=== PATIENT | female | born 1975 | race Caucasian/White ===

== ENCOUNTER 2024-01-27 08:25 | Outpatient (CLI) | payer OTHER, SELFPAY ==
--- NOTE | 2024-01-27 08:30 | CRLHL7_ITS ---
For Patients: As a result of the Century Cures Act, medical imaging exams and procedure reports are released immediately into your electronic medical record. You may view this report before your referring provider. If you have questions, please contact your health care provider. INDICATION: Right foot pain. TECHNIQUE: Three views of the right foot. FINDINGS: Subtle irregularity and sclerosis in the navicular bone, healing fracture not excluded. Correlate for any point tenderness and history of trauma. Chronic flattening of the 3rd metatarsal head. Minimal 1st MTP joint degenerative change. Small plantar and Achilles heel spurs. Dictated by Jah Oneal MD @ 01/28/2024 11:09:27 AM (Electronically Signed)
[2024-01-27 09:12] LABS: Basophils Absolute Auto 0.04 K/uL (0.00-0.30); Basophils Percent Auto 0.4 % (0.0-3.0); Eosinophils Absolute Auto 0.16 K/uL (0.00-0.50); Eosinophils Percent Auto 1.6 % (0.0-7.0); Hematocrit 42.7 % (33.0-51.0); Hemoglobin* 13.9 gm/dL (12.0-16.0); Immature Granulocytes Abs Auto 0.02 K/uL (0.00-0.30); Immature Granulocytes Pct Auto 0.2 %; Lymphocytes Absolute Auto 2.88 K/uL (0.90-2.90); Lymphocytes Percent Auto 28.8 % (20-44); Mean Corpuscular HGB Conc 33 gm/dL (32-36); Mean Corpuscular Hemoglobin 30 pg (26-34); Mean Corpuscular Volume 92 fL (80-100); Monocytes Percent Auto 5.5 % (0.0-11.0); Neutrophils Absolute Auto 6.34 K/uL (1.7-7.0); Neutrophils Percent Auto 63.5 % (42.0-72.0); Platelet Count* 314 K/uL (140-440); RDW Coefficient of Variation % 13.7 % (11.5-15.5); Red Blood Count 4.64 m/uL (4.00-5.20); White Blood Count* 9.99 K/uL (4.50-11.00)
[2024-01-27 09:14] LABS: Slide Review Reflex No
[2024-01-27 09:23] LABS: Hemoglobin A1C* 6.6 % (0-5.6)
[2024-01-27 09:24] LABS: Albumin* 4.9 g/dL (3.3-5.0); Chloride* 103 mmol/L (96-114)
[2024-01-27 09:25] LABS: Potassium* 3.5 mmol/L (3.6-5.1); Sodium* 138 mmol/L (135-149)
[2024-01-27 09:27] LABS: Anion Gap 13 mEq/L (7-15); Aspartate Amino Transferase* 45 U/L (12-35); Bilirubin Total* 0.5 mg/dL (0.1-1.5); Blood Urea Nitrogen* 13 mg/dL (7-30); Carbon Dioxide* 22 mmol/L (20-32); Creatinine* 0.5 mg/dL (0.5-1.5); Estimated Glomerular Filt Rate 114 ml/min; Total Protein* 8.6 g/dL (6.0-8.3)
[2024-01-27 09:28] LABS: Alanine Aminotransferase* 40 U/L (4-35); Alkaline Phosphatase* 121 U/L (40-150); Calcium* 9.3 mg/dL (8.4-10.6); Glucose* 166 mg/dL (60-115)
== END 2024-01-27 08:26 | disposition home or self-care (01) ==
LOC: RAD 08:26
PROVIDERS: PCP Family Medicine; Visit Provider Family Medicine
DX: M79.671 Pain in right foot (principal)
CPT/HCPCS: 36415; 73630; 80053; 83036; 84443; 85025

== ENCOUNTER 2024-11-07 03:33 | Emergency (ER) | payer OTHER, SELFPAY ==
--- OUTSIDE RECORDS SUMMARY | 2024-10-30 16:48 | XMS_ITS | Encounter Summary ---
Author Organization [place] Address [address] [place] [address] Care Team Providers Care Fabric Finisher Name Role Phone [facility] Primary [facility] ider Reason for Referral * Consultation (Routine: Next available opening) - Pending Review Specialty Diagnoses / Procedures Referred By Trae t Referred To Contact Diagnoses Epistaxis Elevated blood pressure reading without diagnosis of hypertension Rick Gibbons PA-C [facility] [address] [place] [address] Phone: tel: fax: Referral ID Status Reason Start Date Expiration Date V isits Requested Visits Authorized [id number] Pending Review 10/30/2024 10/30/2025 1 1 Question Answer Reason for Referral: Establish Primary Care Comments Please be aware that coverage of these services is subject to the terms and limitations of your health insurance plan. Call member services at your health plan with any benefit or coverage questions. Reason for Visit * Reason Comments Epistaxis Encounter Details Date Type Department Care Team (Late st Contact Info) Description 10/30/2024 4:48 PM CDT - 10/30/2024 6:48 PM CDT Emergency [facility] Emergency Dept [address] [place] [address] Rick Gibbons PA-C [facility] [address] [place] [address] Epistaxis; Elevated blood pressure reading without diagnosis of hypertension Discharge Disposition: Home or Self Care Social History Tobacco Use Types Packs/Day Years Used Date Smoking Tobacco: Never Assessed Comments No Sex and Gender Information Value Date Recorded Sex Assigned at Not on file Legal Sex Female 4:48 PM CDT Gender Identity Not on file Sexual Orientation Not on file documented as of this encounter Last Filed Vital Signs Vital Sign Reading Time Taken Comments Blood Pressure 190/106 10/30/2024 6:30 PM CDT Pulse 104 10/30/2024 6:30 PM CDT Temperature 36.3 C (97.3 F) 10/30/2024 4:53 PM CDT Respiratory Rate 18 10/30/2024 6:30 PM CDT Oxygen Saturation 95% 10/30/2024 6:30 PM CDT Inhaled Oxygen Concentration - - Weight - - Height - - Body Mass Index - - documented in this encounter Discharge Instructions * Discharge Instructions* Rick Gibbons PA-C - 10/30/2024 6:02 PM CDT Please use Afrin nasal spray twice a day for the next 3 days. Recommend applying a small amount of Aquaphor or Vaseline to the right nostril. Please avoid using excessive amounts of ibuprofen or other NSAIDs as this can thin your blood and cause ongoing nasal bleeding. Please follow-up with your primary care provider for blood pressure recheck. Please return to the ER with ongoing bleeding, dizziness, lightheadedness, or any other new or worsening symptoms. * Attachments The following attachments cannot be sent through Care Everywhere. * Nosebleeds ([place]) * Nose Cautery: Post op ([place]) * Hypertension: General Info ([place]) documented in this encounter ED Notes * Siria Galeas RN - 10/30/2024 5:04 PM CDT Patient presents to ED from via EMS. Patient had nose bleed that had been bleeding for 30 minutes. HEALTH AND WELLNESS ADVISOR EMS report blood coming out of her eyes and patient coughing up blood. Hypertensive. Some oozing out R nostril. * Rick Gibbons PA-C - 10/30/2024 5:04 PM CDT Emergency Department Note History of Present Illness Chief Complaint Epistaxis HPI Bety Wharton is a 48 year old female with a history of diabetes mellitus type II who presents to the ED via EMS from Urgent Care with her friend's daughter for evaluation of epistaxis. Patientreports that she woke up this morning with a tooth ache so she took 1000 mg of ibuprofen. At 1000 this morning she went to breakfast with her friend's daughter, and then around 1400 they went shopping. Just before 1600 while still shopping, her right nostril began to bleed profusely. They could notget it to stop and she was coughing up blood clots so they went to Urgent Care. At Urgent Care theyclamped her nose, but after a while the pressure built up and blood began to come out of her eyes, so they sent her to the ED. She is feeling a little lightheaded and nervous. She states that she woke up feeling fine this morning and did not have a nosebleed. She used to get minor nose bleeds from the ages of [age], but they were never this severe, and she stopped getting them. She has had a cough recently and rhinorrhea. No fevers. She denies trauma to the nose or picking at her nose. She is noton any anticoagulants. No hemoptysis or hematemesis. She does not have a history of chronic hypertension, but does have elevated blood pressure when she goes to the dentist or feels particularly nervous. No history of bleeding or clotting disorders. She does not check her blood pressure daily, but has been told at primary care appointments that her heart is healthy. History was obtained through the use of patient's friend's daughter acting as financial investigator. Independent Historian None Review of External Notes Reviewed note from today. Seen for epistaxis. Past Medical History Medical History and Problem List Diabetes mellitus type II Medications The patient is not currently taking any regular medications. Surgical History No past surgical history on file. Physical Exam Patient Vitals for the past 24 hrs: BP Temp Temp src Pulse Resp SpO2 10/30/24 1653 (!) 193/106 97.3 ??F (36.3 ??C) Temporal 119 18 97 % Physical Exam Physical Exam: General: alert, no acute distress Head: normocephalic, atraumatic Eyes: normal conjunctiva, PERRLA, EOMI Ears: External ears appear normal. Nose: Blood clots noted in right nare with mild oozing. No blood in the left nare. No septal hematoma. No nasal trauma. No nasal bridge tenderness. Throat: No blood in the posterior oropharynx. Moist mucous membranes. Neck: Supple. CV: tachycardic, regular rhythm Pulm: lungs clear to ausculation bilaterally. No respiratory distress. Abdomen: soft, non-tender, non-distended MSK: No midline tenderness Ext: Normal range of motion of all extremities. No gross deformities Skin: warm, dry, no rashes Neuro: Alert and oriented, moving all extremities normally Psych: Appropriate mood. Cooperative Diagnostics Lab Results Labs Ordered and Resulted from Time of ED Arrival to Time of ED Departure CBC WITH PLATELETS AND DIFFERENTIAL - Abnormal Result Value WBC Count 14.3 (*) RBC Count 4.25 Hemoglobin 12.8 Hematocrit 38.9 MCV 92 MCH 30.1 MCHC 32.9 RDW 13.4 Platelet Count 319 % Neutrophils 74 % Lymphocytes 20 % Monocytes 4 % Eosinophils 1 % Basophils 1 % Immature Granulocytes 1 NRBCs per 100 WBC 0 Absolute Neutrophils 10.6 (*) Absolute Lymphocytes 2.9 Absolute Monocytes 0.5 Absolute Eosinophils 0.1 Absolute Basophils 0.1 Absolute Immature Granulocytes 0.1 Absolute NRBCs 0.0 Imaging No orders to display EKG None Independent Interpretation None ED Course Medications Administered Medications oxymetazoline (AFRIN) 0.05 % spray 2 spray (has no administration in time range) silver nitrate (ARZOL) Misc 1 applicator (has no administration in time range) Procedures Procedures Epistaxis Care Procedure: Epistaxis Care Indication: Epistaxis Consent: Verbal Medication: Patient was topically medicated with Oxymetazoline Procedure detail: Clots were expelled. An area along the right anterior nasal septum was identifiedas the likely source of bleeding. This area was cauterized with silver nitrate. Patient was closely monitored and did not have evidence of recurrent bleeding. Patient Status: The patient tolerated the procedure well: Yes. There were no complications. Discussion of Management None ED Course ED Course as of 10/30/241810 Sat Oct 30, 20241654 I obtained the history and performed the examination as described. 1746 I rechecked and updated the patient. 1809 I rechecked and updated the patient. Discussed discharge. Additional Documentation None Medical Decision Making / Diagnosis [facility] Diagnoses: None MIPS None [facility] Bety Wharton is a 48 year old female who presents to the ED from for evaluation of epistaxis. Patient reports that she was out shopping today when her right nare suddenly began bleeding. She was seen at urgent care but they were unable to stop the bleeding prompting her visit to the ED. On arrival, patient is hypertensive and tachycardic. Exam is notable for blood clots in the right nare with mild oozing. No septal hematoma. No nasal trauma. No blood in posterior oropharynx. Blood clots were removed after a few cycles of nasal irrigation and Afrin nasal spray. After the blood clots were removed, I was able to visualize an area of recent bleed along the anterior nasal septum. This was cauterized using silver nitrate. She was observed in the ED without recurrence of bleed. Suspecther nosebleed was secondary to nasal irritation from recent viral respiratory illness and excessiveibuprofen use. CBC was obtained which revealed elevated WBC likely reactive. Normal hemoglobin. Normal platelets. Vitals remained stable in the ED. BP was still elevated on recheck. Discussed close follow-up with her PCP for blood pressure recheck. Recommended Afrin nasal spray, applying Vaseline/Aquaphor to the anterior nasal septum, and to avoid excessive NSAID use. Instructed to use nasal clamp for recurrent bleed. Discussed return to the ER with ongoing bleeding, dizziness, lightheadedness, syncope, fever, chills, or any other new or worsening symptoms. Patient voiced understanding agreeable to plan of care. All questions were answered. Disposition The patient was discharged. Diagnosis ICD-10-CM 1. Epistaxis R04.0 Primary Care Referral 2. Elevated blood pressure reading without diagnosis of hypertension R03.0 Primary Care Referral Discharge Medications New Prescriptions No medications on file Scribe Disclosure: I, Ryan Taylor, am serving as a scribe at 5:12 PM on 10/30/2024 to document services personally performed by Rick Gibbons PA-C based on my observations and the provider's statements to me. Rick Gibbons PA-C 10/31/24 0028 Rick Gibbons PA-C 10/31/24 0028 * Siria Galeas RN - 10/30/2024 4:48 PM CDT Bed: ED15 Expected date: Expected time: Means of arrival: Comments: [facility]-Epistaxis documented in this encounter Plan of Treatment Scheduled Referrals Name Type Priority Associated Diagnoses Orde r Schedule Primary Care Referral Referral Routine: Next available opening Epistaxis Elevated blood pressure reading without diagnosis of hypertension Expected: 10/30/2024 (Approximate), Expires: 10/30/2025 documented as of this encounter Procedures Procedure Name Priority Date/Time Associated Diagnosis Comments CBC WITH PLATELETS AND DIFFERENTIAL STAT 10/30/2024 5:34 PM CDT CBC WITH PLATELETS & DIFFERENTIAL STAT 10/30/2024 5:34 PM CDT documented in this encounter Results * (ABNORMAL) CBC with platelets and differential (10/30/2024 5:34 PM CDT) WBC Count 14.3(H) 4.0 - 11.0 10e3/uL 10/30/2024 5:43 PM CDT [facility] RBC Count 4.25 3.80 - 5.20 10e6/uL 10/30/2024 5:43 PM CDT [facility] Hemoglobin 12.8 11.7 - 15.7 g/dL 10/30/2024 5:43 PM CDT [facility] Hematocrit 38.9 35.0 - 47.0 % 10/30/2024 5:43 PM CDT [facility] MCV 92 78 - 100 fL 10/30/2024 5:43 PM CDT [facility] MCH 30.1 26.5 - 33.0 pg 10/30/2024 5:43 PM CDT [facility] MCHC 32.9 31.5 - 36.5 g/dL 10/30/2024 5:43 PM CDT [facility] RDW 13.4 10.0 - 15.0 % 10/30/2024 5:43 PM CDT [facility] Platelet Count 319 150 - 450 10e3/uL 10/30/2024 5:43 PM CDT [facility] % Neutrophils 74 % 10/30/2024 5:43 PM CDT [facility] % Lymphocytes 20 % 10/30/2024 5:43 PM CDT [facility] % Monocytes 4 % 10/30/2024 5:43 PM CDT [facility] % Eosinophils 1 % 10/30/2024 5:43 PM CDT [facility] % Basophils 1 % 10/30/2024 5:43 PM CDT [facility] % Immature Granulocytes 1 % 10/30/2024 5:43 PM CDT [facility] NRBCs per 100 WBC 0 <1 /100 025 5:43 PM CDT [facility] Absolute Neutrophils 10.6(H) 1.6 - 8.3 10e3/uL 10/30/2024 5:43 PM CDT [facility] Absolute Lymphocytes 2.9 0.8 - 5.3 10e3/uL 10/30/2024 5:43 PM CDT [facility] Absolute Monocytes 0.5 0.0 - 1.3 10e3/uL 10/30/2024 5:43 PM CDT [facility] Absolute Eosinophils 0.1 0.0 - 0.7 10e3/uL 10/30/2024 5:43 PM CDT [facility] Absolute Basophils 0.1 0.0 - 0.2 10e3/uL 10/30/2024 5:43 PM CDT [facility] Absolute Immature Granulocytes 0.1 <=0.4 10e3/uL 10/30/2024 5:43 PM CDT [facility] Absolute NRBCs 0.0 10e3/uL 10/30/2024 5:43 PM CDT [facility] Blood STRUCTURE OF RIGHT HAND / Unknown Venipuncture / Unknown 10/30/2024 5:34 PM CDT 10/30/2024 5:40 PM CDT us Rick Rey Shai [facility] - BLOOD ORDERABLES Final Result [facility] [address] Lab (1st floor, no room number) [place] [address], [facility] documented in this encounter Visit Diagnoses Diagnosis Epistaxis Elevated blood pressure reading without diagnosis of hypertension documented in this encounter Administered Medications Inactive Administered Medications - up to 3 most recent administrations Medication Order MAR Action Action Date Dose Rate Site oxymetazoline (AFRIN) 0.05 % spray 2 spray 2 spray, Nasal, ONCE, On 10/30/24 at 1700, For 1 dose, Use for more than 3 consecutive days may cause rebound vasodilation. $Given 10/30/2024 6:19 PM CDT 2 sprays silver nitrate (ARZOL) Misc 1 applicator Topical, ONCE, On 10/30/24 at 1755, For 1 dose $Given 10/30/2024 6:21 PM CDT 1 applicator documented in this encounter Active and Recently Administered Medications Times are shown in CDT. Scheduled Medication Order 10/28/2024 10/29/2024 10/30/2024 oxymetazoline (AFRIN) 0.05 % spray 2 spray (COMPLETED) 2 spray, Nasal, ONCE, On 10/30/24 at 1700, For 1 dose, Use for more than 3 consecutive days may cause rebound vasodilation. 1819 ($Given - Provi melody: Siria Galeas RN) silver nitrate (ARZOL) Misc 1 applicator (COMPLETED) Topical, ONCE, On 10/30/24 at 1755, For 1 dose 1821 ($Given - Provi melody: Siria Galeas RN) documented in this encounter Care Teams Fabric Finisher Relationship Specialty Start Date End Date [facility] [address] [place] [id number] PCP - General 10/30/24 11/01/24 documented as of this encounter
--- OUTSIDE RECORDS SUMMARY | 2024-11-07 03:36 | XMS_ITS | Clinical Summary ---
Author Organization [employer] Address [facility] [place] [address] Care Team Providers Care Color Adviser Name Role Phone Pcp, No Primary Care Provider Unavailabl e Allergies Active Allergy Reactions Criticality Noted Date Comments Penicillin V Rash High 05/01/2016 Medications INTRAUTERINE DEVICE (IUD)Indication s:Encounter for IUD insertion Insert 1 Device into the vagina. [id number] mirena Exp 06/25 Remove 04/24/16 1 Device 0 04/24/2011 Active gemfibrozil (LOPID) 600 mg tabletIndicatio ns:Hypertriglyc eridemia Take 1 tablet by mouth 2 times daily before meals. 180 tablet 1 09/27/2013 Active cholecalciferol (VITAMIN D3) 50,000 unit capsuleIndicati ons:Vitamin D deficiency Take 1 capsule by mouth every Friday and . 32 capsule 0 01/17/2014 Active budesonide (RHINOCORT AQUA) (32 mcg each actuation) nasal spray Inhale 2 Sprays into both nostrils once daily. 1 Each 5 01/19/2014 Active loratadine (CLARITIN) 10 mg tablet Take 1 tablet by mouth once daily. 30 tablet 11 01/19/2014 Active hydrOXYzine pamoate (VISTARIL) 25 mg capsuleIndicati ons:Anxiety Take 1 capsule by mouth 3 times daily if needed. 30 capsule 02/14/2018 Active Active Problems Problem Noted Date Diagnosed Date Elevated fasting glucose 05/07/2013 Adjustment disorder with mixed anxiety and depre ssed mood 02/24/2013 Morbid obesity 04/05/2011 Medial epicondylitis of elbow 04/05/2011 TP (tinea pedis) 04/05/2011 Undiagnosed cardiac murmurs 04/05/2011 Vitamin D deficiency 11/19/2010 Low grade squamous intraepit helial lesion (LGSIL) on cervical Pap smear 09/21/2008 Overview (05/27/2017): 09/21/2008 LSIL 12/05/2008 [place]: SREE 1 06/07/2009 ASCUS/HPV positive, [place]: Benign 05/31/2010 NIL 04/12/2013 NIL/HPV negative 05/13/2017 NIL/HPV negative Plan: Routine screening Encounters Date Type Department Care Team Description 11/02/2024 Orders Only [facility] Scanner 1 scan: (1-Ord) ISABELLA, PAULO LAB RESULTS, 11/02/2024 10/30/2024 4:15 PM CDT Office Visit [facility] [address] [place] [address] [address] [place] [address] Nose Problem 10/30/2024 Travel from Last 3 Months Immunizations Immunization Administration Dates Next Due AMB Influenza, IIV3 (Age >=3 years)(Flu Clinic O nly) 03/28/2009 Influenza, IIV3 (Age >=3 years) 04/12/2013,02/21 Tdap 04/12/2013 Family History Medical History Relation Name Comments Arthritis Father Hypertension Maternal Grandmother Diabetes Mother Hyperlipidemia Mother Hypertension Mother Relation Name Status Comments Father Maternal Grandmother Mother Social History Tobacco Use Types Packs/Day Years Used Date Smoking Tobacco: Never Smokeless Tobacco: Never Tobacco Cessation:Counseling Given: Yes Alcohol Use Standard Drinks/Week Comments No 0 (1 standard drink = 0.6 oz pur e alcohol) Comments No Sex and Gender Information Value Date Recorded Sex Assigned at Not on file Legal Sex Female 6:28 AM INDUSTRIAL RELATIONS SPECIALIST Gender Identity Not on file Sexual Orientation Not on file Obstetrics History Para Term AB IAB SAB Ectopic Multiple Livin g Live Births 2 2 2 2 Date Outcome GA Total Labor Labor/2nd/3rd Weight Sex Type Anes PTL Rand A1 A5 Name Clin 2001 Term 40w 0d 16h 00m/ 3.4 kg (7 lb 8 oz) M Vag gavin 2004 Term 40w 0d 16h 00m/ 3.86 kg (8 lb 8 oz) M Eyal Weinstein Last Filed Vital Signs Vital Sign Reading Time Taken Comments Blood Pressure 179/92 10/30/2024 4:20 PM CDT Pulse 130 10/30/2024 4:20 PM CDT Temperature 37.6 C (99.6 F) 10/30/2024 4:20 PM CDT Respiratory Rate 18 01/18/2016 5:33 PM CDT Oxygen Saturation 97% 10/30/2024 4:20 PM CDT Inhaled Oxygen Concentration - - Weight 99.7 kg (219 lb 12.8 oz) 02/14/2018 8:12 AM CDT Height 151 cm (4' 11.45) 05/13/2017 8:07 AM INDUSTRIAL RELATIONS SPECIALIST Body Mass Index 43.73 05/13/2017 8:07 AM INDUSTRIAL RELATIONS SPECIALIST Plan of Treatment Health Maintenance Due Date Last Done Comments Hepatitis C screening for ag e 18-11[birth year]24[birth year]1991 Hepatitis B series for 19+ ( 1 of 3 - 19+ 3-dose series) 1992 Depression screening for age 12+ 01/17/2017 01/18/20 16 BMI (ht and wt on same day) for age 18+ 05/13/2018 05/13/2017, 01/18/2016 Colonoscopy through age 75 2018 Mammogram for age 45-75 09/25/2021 09/25/2020, 05/13 Lipids for age 45-75 11/29/2021 11/29/2016, 03/24/2015, 09/09/2013, Additional history exists Tetanus booster 04/12/2023 04/12/2013 Pneumococcal series for age 50+ (1 of 1 - PCV) 11/24/2023 Zoster (shingles) series for age 50+ (1 of 2) 11/24/2023 COVID-19 vaccine series ( - season) 2023 04/03/2022, 05/17/2021, 07/29/2020, Additional history exists Influenza Vaccine (#1) 2024 3, 02/21/2011, 03/28/2009 Pap test for age 21-65 10/08/2025 3, 10/08/2022, 03/14/2022, Additional history exists HIV for age 15-65 Completed 09/13/2008 Procedures Procedure Name Priority Date/Time Associated Diagnosis Comments SCAN-LABORATORY REPORT 11/02/2024 12:00 AM CDT HPV HIGH RISK Routine 10/08/2022 12:00 PM CDT SCAN-MAMMOGRAPHY REPORT 09/25/2020 12:00 AM CDT LIPID PANEL Routine 11/29/2016 8:13 AM CDT Obese Pre-diabetes ANTI HIV 1/2 Routine 09/13/2008 4:46 PM CDT Supervision of Other Normal (HC) from Last 3 Months or Most Recently Relevant to Health Maintenance Results * SCAN-LABORATORY REPORT (11/02/2024 12:00 AM CDT) us Scanner OTHER Final Result * HPV HIGH RISK (10/08/2022 12:00 PM CDT) TYPE 16 Negative Negative 10/17/2022 5:17 PM CDT [facility] TYPE 18 Negative Negative 10/17/2022 5:17 PM CDT [facility] OTHER HIGH RISK TYPES Negative Negative 10/17/2022 5:17 PM CDT [facility] Other (Cervical) 10/08/2022 12:00 PM CDT 10/14/2022 12:14 PM CDT Narrative [facility] - 10/17/2022 5:17 PM CDT HPV types 16, 18, 31, 33, 35, 39, 45, 51, 52, 56, 58, 59, 66 and 68 DNA were undetectable or below the pre-set threshold. Methodology: Daryl Krunal 4800 HPV Test us Krystal Chavis NP MICROBIOLOGY Final Res ult [facility] [address] [place] [address], [place] * SCAN-MAMMOGRAPHY REPORT (09/25/2020 12:00 AM CDT) Anatomical Region Laterality Modality Other us Scanner OTHER Final Result * (ABNORMAL) LIPID PANEL (11/29/2016 8:13 AM CDT) CHOLESTEROL,TOTAL 181 100 - 199 mg/dL 11/29/2016 3:26 PM CDT [facility] TRIGLYCERIDES 214(H) <150 mg/dL 11/29/2016 3:26 PM CDT [facility] HDL CHOLESTEROL 41 >40 mg/dL 7 3:26 PM CDT [facility] NON-HDL CHOLESTEROL 140 <145 mg/dl 11/29/2016 3:26 PM CDT [facility] CHOL/HDL RATIO 4.41 <4.50 11/29/2016 3:26 PM CDT [facility] LDL CHOLESTEROL 97 <=130 mg/dL 11/29/2016 3:26 PM CDT [facility] PATIENT STATUS NOT GIVEN 11/29/2016 3:26 PM CDT [facility] Blood BLOOD SPECIMEN / Unknown Venipuncture / Unknown 11/29/2016 8:13 AM CDT 11/29/2016 8:13 AM CDT us Nakia Garcia Detert DO CHEMISTRY Final Resul t [facility] [address] [place] [address], [place] * HIV (09/13/2008 4:46 PM CDT) ANTI HIV 1/2 Non-reacti ve [facility] Blood specimen (specimen) BLOOD SPECIMEN / Unknown 09/13/2008 4:46 PM CDT 09/13/2008 4:36 PM CDT us Azul Lopez [facility] INTER[facility] SEND OUTS F inal Result [facility] [place]NAL ZIP [address] [address] [place] [address] from Last 3 Months or Most Recently Relevant to Health Maintenance Care Teams Color Adviser Relationship Specialty Start Date End Date Pcp, No . PCP - General 09/18/18
--- OUTSIDE RECORDS SUMMARY | 2024-11-07 03:36 | XMS_ITS | Encounter Summary ---
Author Organization [employer] Address [address] [place] [address] Care Team Providers Care Track Worker Name Role Phone [facility] Primary Care Prov ider Encounter Details Date Type Department Care Team (Latest Contact Info) Description 10/30/2024 Travel Social History Tobacco Use Types Packs/Day Years Used Date Smoking Tobacco: Never Assessed Comments No Sex and Gender Information Value Date Recorded Sex Assigned at Not on file Legal Sex Female 4:48 PM CDT Gender Identity Not on file Sexual Orientation Not on file documented as of this encounter Plan of Treatment Not on file documented as of this encounter Visit Diagnoses Not on filedocumented in this encounter Care Teams Track Worker Relationship Specialty Start Date End Date [facility] [address] [place] [address] PCP - General 10/30/24 11/01/24 documented as of this encounter
--- OUTSIDE RECORDS SUMMARY | 2024-11-07 03:36 | XMS_ITS | Clinical Summary ---
Author Organization [facility] Address [address] [place] [id number] Care Team Providers Care Building Custodial Supervisor Name Role Phone Unavailable Primary Care Provider Unavailabl e Allergies No known active allergies Medications No known medications Encounters Date Type Department Care Team Description 10/30/2024 4:48 PM CDT - 10/30/2024 6:48 PM CDT Emergency [facility] [address] [place] [id number] Shai, Rick Rey, RONAN Epistaxis; Elevated blood pressure reading without diagnosis of hypertension Discharge Disposition: Home or Self Care 10/30/2024 Travel from Last 3 Months Social History Tobacco Use Types Packs/Day Years Used Date Smoking Tobacco: Never Assessed Comments No Sex and Gender Information Value Date Recorded Sex Assigned at Not on file Legal Sex Female 4:48 PM CDT Gender Identity Not on file Sexual Orientation Not on file Last Filed Vital Signs Vital Sign Reading Time Taken Comments Blood Pressure 190/106 10/30/2024 6:30 PM CDT Pulse 104 10/30/2024 6:30 PM CDT Temperature 36.3 C (97.3 F) 10/30/2024 4:53 PM CDT Respiratory Rate 18 10/30/2024 6:30 PM CDT Oxygen Saturation 95% 10/30/2024 6:30 PM CDT Inhaled Oxygen Concentration - - Weight - - Height - - Body Mass Index - - Plan of Treatment Health Maintenance Due Date Last Done Comments ADVANCE CARE PLANNING 1973 ANNUAL REVIEW OF HM ORDERS 1973 CT COLONOGRAPHY 1973 DIABETES SCREENING 1973 FIT 1973 FLEX SIG 1973 MAMMO SCREENING 1973 sDNA (Cologuard) 1973 YEARLY PREVENTIVE VISIT 1976 COLONOSCOPY 11/24/1983 COLORECTAL CANCER SCREENING 11/24/1983 HEPATITIS C SCREENING 11/24/1991 HEPATITIS B VACCINE (1 of 3 - 19+ 3-dose series) 1992 LIPID 2013 DTAP/TDAP/TD VACCINE (2 - Td or Tdap) 04/12/2023 04/12/2013 PNEUMOCOCCAL VACCINE 50+ YEARS (1 of 1 - PCV) 11/24/2023 ZOSTER VACCINE (1 of 2) 11/24/2023 COVID-19 VACCINE (1 - 2023-2 5 season) 2023 PHQ-2 (once per calendar year) 2024 INFLUENZA VACCINE (#1) 2024 3, 02/21/2011, 03/28/2009 PAP 10/08/2025 10/08/2022 HIV SCREENING Completed 09/13/2008 HPV VACCINE (No Doses Required) Completed MENINGITIS VACCINE Aged Out No longer eligible based on patient's age to complete this topic Procedures Procedure Name Priority Date/Time Associated Diagnosis Comments CBC WITH PLATELETS & DIFFERENTIAL STAT 10/30/2024 5:34 PM CDT CBC WITH PLATELETS AND DIFFERENTIAL STAT 10/30/2024 5:34 PM CDT from Last 3 Months Results * (ABNORMAL) CBC with platelets and [...] CDT 10/30/2024 5:40 PM CDT us Rick Gibbons PA-C LAB - BLOOD ORDERABLES Final Result [facility] [address] [facility] (1st floor, no room number) [place] [address], [facility] from Last 3 Months
[2024-11-07 03:38] VITALS: BP 155/91; PULSE 118; RESP 22; TEMP 37.3; O2SAT 96
[2024-11-07] MEDS: TRANEXAMIC ACID 100 MG/ML INJ 1000 MG TOPICAL (03:59)
--- NOTE | 2024-11-07 04:08 | ED_ITS ---
HPI - General Adult General Chief complaint: Epistaxis/Nosebleed Stated complaint: nosebleed Time Seen by Provider: 11/07/24 03:43 Source: patient and family Mode of arrival: ambulatory Limitations: language barrier (Patient requested son to interpret, waiver signed.) History of Present Illness HPI narrative: 48-year-old female presents the emergency department in the wee hours with a nosebleed for the past 13 hours. Initially had started to slow but never fully stopped, worsened about an hour prior to presentation. No trauma or injury. Does not take any anticoagulants. Unfortunately has been getting nosebleeds with increasing frequency over the past month or so including 1 last week. No prior history of nasal surgery. Does not notice bleeding from other areas such as GI tract, gynecological, urinary, etc.. No pain or headache. No fever. Blood did come out of the medial canthus of eye as well. Nasal clamp applied in triage. No vomiting. Past medical history notable for well-controlled diabetes. Reports that her only home medication is metformin. Has a penicillin allergy. Nonsmoker. ROS is notable for the HEENT complaints of as above only. Negative for GI, generalized, other HEENT, respiratory cardiovascular, hematological or skin changes. Related Data Home Medications ?Medication ?Instructions ?Recorded ?Confirmed metformin 500 mg tablet,extended 500 mg PO BID 3 11/07/24 release 24 hr omega-3 300 mg-dha 120 mg-epa 180 1 cap PO DAILY 10/0811/07/24 mg-fish oil 1,000 mg capsule Allergies Allergy/AdvReac Type Severity Reaction Status Date / Time Penicillins Allergy Severe Swelling Verified 10/08/22 17:36 of Lip/Tongue/Throat [facility] Medical History History of miscarriage (2008) ?Z87.59 - Personal history of other complications of , childbirth and the puerperium (ICD-10) History of vaginal delivery Family History Mother High blood pressure High cholesterol Diabetes Maternal Grandmother High blood pressure Social History What is your current living situation?: I presently have a place to live Problems where you live: no known problems In the past 12 months, utilities in danger of being shut off: no In the past 12 mos, have been you worried that your food would run out before you had money to buy more?: sometimes true In the past 12 mos, the food you bought just didn't last and you didn't have money to buy more?: sometimes true Smoking Status: Never smoker Non-prescribed substance use: denies use How often does anyone, including family, friends and others, physically hurt you : How often does anyone, including family, friends and others, insult or talk down to you: How often does anyone, including family, friends and others, threaten you with harm: How often does anyone, including family, friends and others, scream or curse at you: Health Related Social Needs: food insecurity (Z59.41) Exam Const: Vital Signs, click to edit/add: Vital Signs - 24 hr 11/07/24 03:38 Temperature 99.1 F Pulse Rate [Pulse Oximeter] 118 H Respiratory Rate 22 Blood Pressure [Ri ght Upper Arm] 155/91 H Pulse Oximetry 96 Oxygen Delivery Me thod Room Air Documenting provider has reviewed patient's vital signs: yes Common normals: no apparent distress General appearance: cooperative and well kempt HENMT: Common normals: normocephalic, moist oral mucous membranes and oropharynx normal Head and scalp: normocephalic Other: Left knee are normal. Right Cavazos has bleeding from the anterior septum, clots present, cleared. Eye: Common normals: conjunctivae normal General eye: normal appearance of both eyes Conjunctiva: conjunctiva(e) normal Neck & C-Spine: Common normals: full ROM and no lymphadenopathy Resp: Common normals: normal respiratory effort, no use of accessory muscles and clear to auscultation bilaterally Effort & inspection: able to speak in complete sentences Auscultation: clear to auscultation bilaterally Cardio: Common normals: regular rate, regular rhythm, S1 normal heart sound, S2 normal heart sound and no murmurs Rate: regular rate Rhythm: regular rhythm Heart sounds: S1 normal and S2 normal Psych: Common normals: thought process normal, cooperative and affect normal Appearance: well kempt Thought process: normal thought process Skin: Common normals: no rashes or lesions noted General skin exam: no rashes or lesions noted Course Course ED Course: 48-year-old not anticoagulated female with spontaneous nosebleed from the anterior septum. Counseled patient on treatment options. I do recommend a CBC since she has had so many recently just to make sure there is no unusual blood dyscrasia. Recommended a trial of TXA and clamp. She was agreeable to this. 2 mL of tranexamic acid, 1000 mg per 10 mL was infused into the nostril and nasal clamp was reapplied. Re-evaluated after 5 minutes. Bleeding has slowed considerably but there is still some slight oozing, I recommend balloon placement. 5.5 cm anterior nasal packing balloon is placed with good hemostasis. Wrist patient's mouth and plan to re-evaluate in 10 minutes. Ashley ent counseled on care of the balloon. She is to call tomorrow morning to get an appointment with the ear nose and throat provider to have the packing removed. I think in her case it is a good idea to follow up with a specialist since she has had so many of these, she may be a good candidate for nasal cautery or other treatment options. Reevaluation(s) Time of Reevaluation #1: 05:04 Reevaluation #1: Re-evaluation shows no further bleeding. Patient reminded of care of the nasal packing, need to call ENT and all other discussion as above. Okay to use Tylenol and/or ibuprofen as needed for discomfort blood work reassuring Vital Signs Vital signs: Initial Vital Signs Temperature 99.1 F 11/07/24 03:38 Temperature Source Temporal Artery Scan 11/07/24 03:38 Pulse Rate 118 H 11/07/24 03:38 Respiratory Rate 22 11/07/24 03:38 Blood Pressure 155/91 H 11/07/24 03:38 Blood Pressure Mean 112 H 11/07/24 03:38 Blood Pressure Position Sitting 11/07/24 03:38 Pulse Oximetry 96 11/07/24 03:38 Oxygen Delivery Method Room Air 11/07/24 03:38 Vital Signs Temperature 99.1 F 11/07/24 03:38 Pulse Rate 118 H 11/07/24 03:38 Respiratory Rate 22 11/07/24 03:38 Blood Pressure 155/91 H 11/07/24 03:38 Pulse Oximetry 96 11/07/24 03:38 Oxygen Delivery Method Room Air 11/07/24 03:38 Temperature 99.1 F 11/07/24 03:38 Pulse Rate 118 H 11/07/24 03:38 Respiratory Rate 22 11/07/24 03:38 Blood Pressure 155/91 H 11/07/24 03:38 Pulse Oximetry 96 11/07/24 03:38 Oxygen Delivery Method Room Air 11/07/24 03:38 Medications Administered Medications: Discontinued Medications Generic Name Dose Route Start Last Admin Trade Name Freq PRN Reason Stop Dose Admin Tranexamic Acid 1,000 mg 11/07/24 03:56 11/07/24 03:59 Tranexamic Acid 100 Mg/Ml Inj TOPICAL 11/07/24 03:57 1,000 mg ONCE ONE Administration Medical Decision Making Lab Data Lab results reviewed: Yes I reviewed the patient's lab results Lab results narrative: No severe anemia or thrombocytopenia. Labs: Lab Results 11/07/24 Range/Units 04:20 WBC 12.17 H (4.50-11.00) K/uL RBC 3.65 L (4.00-5.20) m/uL Hgb 11.0 L (12.0-16.0) gm/dL Hct 33.9 (33.0-51.0) % MCV 93 (80-100) fL MCH 30 (26-34) pg MCHC 32 (32-36) gm/dL RDW Coeff of Katerin 14.0 (11.5-15.5) % Plt Count 343 (140-440) K/uL Neut % (Auto) 62.4 (42.0-72.0) % Lymph % (Auto) 31.2 (20-44) % Anderson % (Auto) 3.9 (0.0-11.0) % Eos % (Auto) 1.6 (0.0-7.0) % Baso % (Auto) 0.4 (0.0-3.0) % Neut # (Auto) 7.60 H (1.7-7.0) K/uL Lymph # (Auto) 3.80 H (0.90-2.90) K/uL Anderson # (Auto) 0.50 (0.00-0.90) K/UL Eos # (Auto) 0.20 (0.00-0.50) K/uL Baso # (Auto) 0.00 (0.00-0.30) K/uL Abs Immat Gran (auto) 0.10 (0.00-0.30) K/uL Imm/Tot Granulo (auto) 0.5 % Discharge Plan Discharge Clinical Impression: Epistaxis Patient Disposition: Home w/ Parent or Adult Condition: Improved Instructions: Nosebleed (ED) Additional Instructions: The bleeding slowed considerably with the blood clot aiding medication, but since it did not stop entirely, it is likely to worsen again, therefore the balloon was placed. The balloon will stay in place until you follow-up with the specialist in the office. You will need to call Friday to secure an etienne ointment. Please call Dr. Sheridan at . Let them know that you were seen in the emergency department over the weekend for a nose bleed and a balloon was placed, you need a prompt follow-up appointment. Swelling of the nose, face, watering of the eyes and nose are very common. It may be slightly blood tinged. It is okay to use Tylenol 1000 mg every 6 hours and or ibuprofen 600 mg every 6 hours as needed for discomfort. It is okay to use gentle sleep aids like melatonin or Benadryl. The specialist may recommend different treatments for you because of the frequency of your nose bleeds. There was nothing in your blood work that suggested a blood clotting problem. If you have severe bleeding, high fevers, severe headache or neurological changes, you should come back to the emergency room. El sangrado disminuy? considerablemente con el medicamento anticoagulante, belen lisbet no se detuvo por completo, es probable que empeore, por lo que se le coloc? el bal?n. El bal?n permanecer? colocado hasta torres la de seguimiento con el especialista en el consultorio. Deber? llamar el por la ma?dena para programar jose la. Llame al Dr. Sheridan al [phone]. Inf?rmeles que fue atendido en urgencias el fin de semana por jose hemorragia nasal y le colocaron un bal?n; necesita jose la de seguimiento inmediata. La hinchaz?n de la nariz y la michael, as? lisbet el lagrimeo, son muy comunes. Puede presentar un ligero sangrado. Puede usar Tylenol 1000 mg cada 6 horas o ibuprofeno 600 mg cada 6 horas seg?n sea necesario para las molestias. Puede usar somn?feros suaves lisbet melatonina o Benadryl. El especialista podr?a recomendarle diferentes tratamientos seg?n la frecuencia de syed hemorragias nasales. No hubo nada en syed an?lisis de carlin que sugiriera un problema de coagulaci?n. Si presenta sangrado intenso, fiebre kavita, dolor de refugio intenso o cambios neurol?gicos, debe acudir de nuevo a urgencias. Activity Level: No strenuous activity Discharge Diet: Regular Prescriptions: No Action metformin 500 mg tablet extended release 24 hr 500 mg PO BID omega 7-lzf-iwg-fish oil 300 mg (120 mg- 180mg)-1,000 mg capsule 1 cap PO DAILY Follow Up/Referrals: Isabel Cotton MD [Primary Care Provider, Hospitalist] Stand Alone Forms: [facility]
[2024-11-07 04:25] LABS: Hematocrit 33.9 % (33.0-51.0); Hemoglobin* 11.0 gm/dL (12.0-16.0); Immature Granulocytes Pct Auto 0.5 %; Lymphocytes Absolute Auto 3.80 K/uL (0.90-2.90); Mean Corpuscular HGB Conc 32 gm/dL (32-36); Mean Corpuscular Hemoglobin 30 pg (26-34); Mean Corpuscular Volume 93 fL (80-100); RDW Coefficient of Variation % 14.0 % (11.5-15.5); Red Blood Count 3.65 m/uL (4.00-5.20); White Blood Count* 12.17 K/uL (4.50-11.00)
[2024-11-07 04:27] LABS: Immature Granulocytes Abs Auto 0.10 K/uL (0.00-0.30); Slide Review Reflex No
== END 2024-11-07 05:17 | disposition home or self-care (01) ==
LOC: ED 04:51
PROVIDERS: Emergency Provider Family Medicine; PCP Family Medicine
DX: R04.0 Epistaxis (principal)
CPT/HCPCS: 30901; 36415; 85025; 99283

== ENCOUNTER 2025-01-06 08:20 | Outpatient (CLI) | payer OTHER, SELFPAY ==
--- NOTE | 2025-01-06 08:45 | CRLHL7_ITS ---
For Patients: As a result of the Century Cures Act, medical imaging exams and procedure reports are released immediately into your electronic medical record. You may view this report before your referring provider. If you have questions, please contact your health care provider. INDICATION: BILATERAL SCREENING MAMMOGRAM, ASYMPTOMATIC 49 Y/O FEMALE COMPARISON: 06/07/2022, 09/25/2020, 05/13/2017 TECHNIQUE: Digital mammogram in CC and MLO projections including computer-aided detection (CAD) and tomosynthesis. BREAST COMPOSITION: The breasts are almost entirely fatty. FINDINGS: No suspicious findings. ASSESSMENT: BI-RADS 1 Negative RECOMMENDATION: Annual screening mammogram. A lay language report of this examination will be provided to the patient. Dictated by: Arthur Mayers MD @ 01/07/2025 10:46:21 (Electronically Signed)
== END 2025-01-06 08:21 | disposition home or self-care (01) ==
PROVIDERS: PCP Internal Medicine; Visit Provider Internal Medicine
DX: Z12.31 Encounter for screening mammogram for malignant neoplasm of breast (principal)
CPT/HCPCS: 77063; 77067; T1013

== ENCOUNTER 2025-03-29 08:34 | Outpatient (CLI) | payer OTHER, SELFPAY | END 2025-03-29 08:35 | disposition home or self-care (01) | PROVIDERS: PCP Internal Medicine; Visit Provider Internal Medicine | DX: E78.5 Hyperlipidemia, unspecified (principal) | CPT/HCPCS: 80061 ==